=== PATIENT | female | born 1990 | race Caucasian/White ===

== ENCOUNTER 2016-09-01 22:34 | Emergency (ER) | payer OTHER ==
[~2016-09-01] VITALS: Ht 154.9 cm; Wt 47.0 kg
[2016-09-01 22:38] VITALS: Ht 154.9 cm; Wt 47.0 kg
[2016-09-01] MEDS ORDERED: SOD CHLORIDE 0.9% 1,000 ML IV STA (23:34)
[2016-09-01] MEDS ORDERED: DIPHENHYDRAMINE 50 MG INJ IV STA (23:34)
[2016-09-01] MEDS ORDERED: METOCLOPRAMIDE 10 MG INJ IV STA (23:34)
--- NOTE | 2016-09-02 00:33 | RADRPT ---
PROCEDURE: CT brain without contrast CLINICAL INDICATION: Headaches TECHNIQUE: A CT of the brain was performed utilizing axial sections from the skull base through th e vertex without contrast. Sagittal and coronal images were also reformatted. The exam CTDIvol = 44. 84 mGy and DLP = 720.23 mGy-cm. COMPARISON: None available FINDINGS: No acute intracranial hemorrhage is identified. There is no mass effect or midline shift. No extra -axial fluid collection is seen. The ventricles and sulci are within normal limits for size and con figuration. The density of the brain is within normal limits. Navas-white differentiation is preser anuradha. The osseous structures are unremarkable. The mastoid air cells and visualized paranasal sinuses are clear. RPTAT:HJJR IMPRESSION: Unremarkable noncontrast CT of the brain. Physician Kelsi Date Time Electronically viewed and signed by Physician Kelsi on 09/02/2016 00:33 /
[2016-09-02] MEDS ORDERED: KETOROLAC 30 MG INJ IV STA (00:48)
[2016-09-02] MEDS ORDERED: IBUP-1542 PO (01:22)
--- NOTE | 2016-09-02 01:31 | ERD ---
ER Documentation Chief Complaint Date/Time DATE: 09/02/16 TIME: 01:25 Chief Complaint headache x 3 hours. denies vomiting HPI Patient is a 26-year-old female with past medical history of seizures who presents to the emergency department with a headache. Patient states her headache started 3 hours ago. Patient describes the pain to be a 10 out of 10. Patient states her pain is primary in the frontal region and "pounding in nature". Patient states she took Aleve at 5 PM with no alleviation of symptoms. Patient states she then took ibuprofen 8 PM with no alleviation of symptoms. Patient states she typically has gotten headaches in the past however this headache is worse and more severe. Patient states she typically does get alleviation with headaches however she is not getting any alleviation with pain medication. Patient denies any nausea, vomiting, blurry vision or loss of consciousness. Patient denies any neck pain, back pain. Patient does play soccer and reports only drinking 2 bottles of water per day. She does report taking Lamotrigine daily. ROS All systems reviewed and are negative except as per history of present illness. Medications Home Meds Active Scripts Ibuprofen* (Motrin*) 600 Mg Tab, 600 MG PO Q6, #30 TAB Prov:KATRIN CALVO PA-C 09/02/16 Allergies Allergies: Coded Allergies: No Known Drug Allergies (Verified Allergy, Unknown, 09/01/16) PMhx/Soc History of Surgery: No Anesthesia Reaction: No Hx Neurological Disorder: No Hx Respiratory Disorders: No Hx Cardiac Disorders: No Hx Psychiatric Problems: No Hx Miscellaneous Medical Probl: No Hx Alcohol Use: No Hx Substance Use: No Hx Tobacco Use: No Smoking Status: Never smoker Physical Exam Vitals Vital Signs Date Time Temp Pulse Resp B/P Pulse Ox O2 Delivery O2 Flow Rate FiO2 09/02/16 02:05 97.6 57 17 102/51 100 Room Air 09/01/16 22:38 98.8 74 20 123/68 100 Physical Exam General: Well-developed, well-nourished female. Appears in no acute distress. Speaking in full sentences Head: Normocephalic, atraumatic. Tender to admission in bilateral temporal regions. Eyes: Pupils are equally reactive bilaterally. EOMs grossly intact. No conjunctival erythema. ENT: External ear without any masses or tenderness. Auditory canals clear bilaterally. No hemotympanium. TM visualized bilaterally, non-erythematous, non- bulging. Nasal mucosa pink with no discharge. Turbinates normal. Oropharynx is pink without any tonsillar erythema or exudates. Sinuses non-tender to palpation. Neck: Supple. No lymphadenopathy or thyromegaly. No meningeal signs. Lungs: Clear to auscultation bilaterally. No rhonchi, wheezing, rales or coarse breath sounds. Heart: Regular rate and rhythm. No murmurs, rubs or gallops. Extremities: No pedal edema, unilateral leg swelling. 5/5 strength in all extremities. Neurologic: Alert and oriented x3, cooperative. Mood and affect appropriate to situation. Cranial nerves II through XII are grossly intact. Normal speech. Motor exam: 5/5 strength in upper and lower extremities. Sensory exam: Sensation intact to light touch on all four extremities. Cerebellar function exam: Rapid alternating movements intact. No dysmetria on uvwyxa-ow-eqcp test. Steady gait. No pronator drift. Negative Brudzinski sign. Negative Kernig sign. Skin: Normal color. Warm and dry. No rashes or lesions. Results 24 hrs Current Medications Medications (Trade) Dose Ordered Sig/Lulu Route PRN Reason Start Time Stop Time Status Last Admin Dose Admin Sodium Chloride (NS) 1,000 ml @ 1,000 mls/hr Q1H STAT IV 09/01/16 23:34 09/02/16 00:33 DC 09/02/16 00:02 Metoclopramide HCl (Reglan) 10 mg ONCE STAT IV 09/01/16 23:34 09/01/16 23:36 DC 09/01/16 23:55 Diphenhydramine HCl (Benadryl) 25 mg ONCE STAT IV 09/01/16 23:34 09/01/16 23:36 DC 09/01/16 23:55 Ketorolac Tromethamine (Toradol) 30 mg ONCE STAT IV 09/02/16 00:48 09/02/16 00:49 DC 09/02/16 01:06 Procedures/MDM ED COURSE: The patient was stable throughout ED course. I kept the patient and/or family informed of laboratory and diagnostic imaging results throughout the ED course. DIAGNOSTIC IMAGING: Read by radiologist. DIAGNOSTIC IMAGING REPORT Patient: WEI KATE : 1990 Age: 26 Sex: F MR #: [id number] DOS: 09/01/16 2334 Ordering MD: KATRIN CALVO PA-C Location: [facility] Room/Bed: PROCEDURE: CT brain without contrast CLINICAL INDICATION: Headaches TECHNIQUE: A CT of the brain was performed utilizing axial sections from the skull base through the vertex without contrast. Sagittal and coronal images were also reformatted. The exam CTDIvol = 44.84 mGy and DLP = 720.23 mGy-cm. COMPARISON: None available FINDINGS: No acute intracranial hemorrhage is identified. There is no mass effect or midline shift. No extra-axial fluid collection is seen. The ventricles and sulci are within normal limits for size and configuration. The density of the brain is within normal limits. Navas-white differentiation is preserved. The osseous structures are unremarkable. The mastoid air cells and visualized paranasal sinuses are clear. RPTAT:HJJR IMPRESSION: Unremarkable noncontrast CT of the brain. Physician Kelsi Date Time Electronically viewed and signed by Physician Kelsi on 09/02/2016 00:33 JR/ CC: KATRIN CALVO PA-C MEDICATIONS GIVEN: The fluids, Reglan, Benadryl, Toradol. Toradol was given once the patient was noted to have negative CT head findings. Patient tolerated medication well with no adverse reactions. Patient reported improvement in pain. MEDICAL DECISION MAKING: This is a 26-year-old female with past medical history of seizures who presents to the ED with a headache 3 hours. Vital signs were reviewed. Patient was afebrile. Patient is not hypoxic. Patient stated that the headache was gradual. Patient stated that current headache was similar to headaches in the past. Patient denied any fevers, neck stiffness, jaw claudication, visual changes or LOC. Full neurological exam was normal. Unremarkable noncontrast CT of the brain was noted. Given these findings, the patient's presentation is most consistent with tension vs migraine headache. I have a much lower clinical concern for intracranial hemorrhage, meningitis, encephalitis, CO poisoning, temporal arteritis, benign intracranial hypertension, intracranial mass, glaucoma, preeclampsia, sinusitis. PRESCRIPTIONS: Ibuprofen DISCHARGE: At this time, patient is stable for discharge and outpatient management. I have encouraged the patient to hydrate well. Patient provided with a copy of all imaging studies obtained today. I have instructed the patient to follow-up with his/her primary care physician in 1-2 days. Patient was advised that she should follow-up with her neurologist for further management of her headaches . Patient should continue to take seizure medication. I have instructed the patient to promptly return to the ER at any time for any new or worsening symptoms including increased increased pain, fever, nausea, vomiting, numbness, neck stiffness, visual changes, weakness or LOC. The patient and/or family expressed understanding of and agreement with this plan. All questions were answered. Home care instructions were provided. Departure Diagnosis: Primary Impression: Headache Headache type: unspecified Headache chronicity pattern: unspecified pattern Intractability: not intractable Qualified Code: R51 - Nonintractable headache, unspecified chronicity pattern, unspecified headache type Condition: Stable Patient Instructions: Self-Care for Headaches Referrals: [facility] YOU HAVE RECEIVED A MEDICAL SCREENING EXAM AND THE RESULTS INDICATE THAT YOU DO NOT HAVE A CONDITION THAT REQUIRES URGENT TREATMENT IN THE EMERGENCY DEPARTMENT. FURTHER EVALUATION AND TREATMENT OF YOUR CONDITION CAN WAIT UNTIL YOU ARE SEEN IN YOUR DOCTORS OFFICE WITHIN THE NEXT 1-2 DAYS. IT IS YOUR RESPONSIBILITY TO MAKE AN APPOINTMENT FOR FOLOW-UP CARE. IF YOU HAVE A PRIMARY DOCTOR --you should call your primary doctor and schedule an appointment IF YOU DO NOT HAVE A PRIMARY DOCTOR YOU CAN CALL OUR PHYSICIAN REFERRAL HOTLINE AT IF YOU CAN NOT AFFORD TO SEE A PHYSICIAN YOU CAN CHOSE FROM THE FOLLOWING [facility] [address] [facility]. [facility] [address] [facility]. [facility] [address] [facility]. [facility] [address] [facility]. [facility] [address]. [facility]. [address] [facility]. [facility] YOU HAVE RECEIVED A MEDICAL SCREENING EXAM AND THE RESULTS INDICATE THAT YOU DO NOT HAVE A CONDITION THAT REQUIRES URGENT TREATMENT IN THE EMERGENCY DEPARTMENT. FURTHER EVALUATION AND TREATMENT OF YOUR CONDITION CAN WAIT UNTIL YOU ARE SEEN IN YOUR DOCTORS OFFICE WITHIN THE NEXT 1-2 DAYS. IT IS YOUR RESPONSIBILITY TO MAKE AN APPOINTMENT FOR FOLOW-UP CARE. IF YOU HAVE A PRIMARY DOCTOR --you should call your primary doctor and schedule and appointment IF YOU DO NOT HAVE A PRIMARY DOCTOR YOU CAN CALL OUR PHYSICIAN REFERRAL HOTLINE AT . IF YOU CAN NOT AFFORD TO SEE A PHYSICIAN YOU CAN CHOSE FROM THE FOLLOWING [facility] INSTITUTIONS: [facility] [address] [place] [address] [facility] [address] [place] [address] [facility] [address] [place] [address] Additional Instructions: Call your primary care doctor TOMORROW for an appointment during the next 1-2 days.See the doctor sooner or return here if your condition worsens before your appointment time. Follow up with your neurologist in the next 1-2 days. Continue to take seizure medication. KATRIN CALVO PA-C Sep 02, 2016 01:31
[2016-09-02 02:05] VITALS: BP 102/51; PULSE 57; RESP 17; TEMP 97.6
== END 2016-09-02 02:05 | disposition home or self-care (01) ==
LOC: FTE 22:34
DX: R51 Headache (principal)
CPT/HCPCS: 70450; 96361; 96374; 96375; J1200; J1885; J2765; J7030; Z7502

== ENCOUNTER 2017-02-06 20:02 | Emergency (ER) | payer OTHER ==
[~2017-02-06] VITALS: Ht 154.9 cm; Wt 49.0 kg
[~2017-02-06 20:02] MED LIST: IBUP-1542 PO
[2017-02-06 20:11] VITALS: Ht 154.9 cm; Wt 49.0 kg
[2017-02-06] MEDS ORDERED: SOD CHLORIDE 0.9% 1,000 ML IV ONE (21:30)
[2017-02-06 21:52] LABS: BASOPHILS % 0.3 % (0.0-2.0); EOSINOPHILS # 0.4 10^3/ul (0.0-0.5); EOSINOPHILS % 2.9 % (0.0-7.0); HEMATOCRIT 36.1 % (37.0-47.0); HEMOGLOBIN 11.4 g/dl (12.0-16.0); LYMPHOCYTES # 1.4 10^3/ul (0.8-2.9); LYMPHOCYTES % 10.8 % (15.0-51.0); MEAN CORPUSCULAR HEMOGLOBIN 28.7 pg (29.0-33.0); MEAN CORPUSCULAR HGB CONC 31.6 g/dl (32.0-37.0); MEAN CORPUSCULAR VOLUME 90.9 fl (82.0-101.0); MEAN PLATELET VOLUME 11.7 fl (7.4-10.4); MONOCYTE # 0.9 10^3/ul (0.3-0.9); NEUTROPHIL # 9.9 10^3/ul (1.6-7.5); NEUTROPHILS % 78.7 % (39.0-77.0); PLATELET COUNT 226 10^3/UL (140-415); RED BLOOD COUNT 3.97 10^6/ul (4.20-5.40); RED CELL DISTRIBUTION WIDTH 13.9 % (11.5-14.5); WHITE BLOOD COUNT 12.7 10^3/ul (4.8-10.8)
[2017-02-06] MEDS ORDERED: AMOX1TAB10 PO (21:54)
[2017-02-06 22:10] LABS: CALCIUM 9.5 mg/dl (8.4-10.2); CREATININE 0.79 mg/dl (0.44-1.00); POTASSIUM 3.5 mmol/L (3.5-5.1)
--- NOTE | 2017-02-07 19:41 | ERD ---
ER Documentation Chief Complaint Date/Time DATE: 02/07/17 TIME: 19:29 Chief Complaint DIZZINESS X 1 HOUR AGO, SORE THROAT AND STUFFY NOSE STARTED YESTERDAY. HPI This is a 26 year old female, with past medical history of seizures, presenting to ER with sore throat, cough, rhinitis, rhinorrhea, headache and dizziness x 1 hour. Patient states all symptoms started earlier today. Denies fevers or chills. Cough is dry and non productive. No chest pain, shortness of breathing or difficulty breathing. No difficulty swallowing or drooling. No muffled voice. No neck pain or neck stiffness. No skin rashes. Headache is frontal and does not radiate. Patient states she feels "congested." Patient took zyrtec-D prior to arrival. No abdominal pain, nausea or vomiting. ROS All systems reviewed and are negative except as per history of present illness. Medications Home Meds Active Scripts Amoxicillin/Potassium Clav (Amox-Clav 875-125 mg Tablet) 875-125 mg Tab, 1 TAB PO BID for 10 Days, #20 TAB Prov:ESTRELLA ADKINS NP 02/06/17 Ibuprofen* (Motrin*) 600 Mg Tab, 600 MG PO Q6, #30 TAB Prov:KATRIN CALVO PA-C 09/02/16 Allergies Allergies: Coded Allergies: No Known Drug Allergies (Verified Allergy, Unknown, 02/06/17) PMhx/Soc Seizures Medical and Surgical Hx: pt denies Medical Hx, pt denies Surgical Hx History of Surgery: No Anesthesia Reaction: No Hx Neurological Disorder: Yes Hx Respiratory Disorders: No Hx Cardiac Disorders: No Hx Psychiatric Problems: No Hx Alcohol Use: No Hx Substance Use: No Hx Tobacco Use: No Smoking Status: Never smoker Physical Exam Vitals Vital Signs Date Time Temp Pulse Resp B/P Pulse Ox O2 Delivery O2 Flow Rate FiO2 02/06/17 20:11 98.7 72 17 124/77 99 Physical Exam Const: No acute distress, alert Head: Atraumatic Eyes: Normal Conjunctiva ENT: Normal External Ears, Nose and Mouth.No erythema or exudate to posterior pharynx. No peritonsillar abscess. TMs normal bilaterally. Neck: Full range of motion..~ No meningismus. Resp: Clear to auscultation bilaterally. No wheezing, rhonchi or crackles. No stridor or labored breathing. No intercostal retractions. Cardio: Regular rate and rhythm, no murmurs Abd: Soft, non tender, non distended. Normal bowel sounds Skin: No petechiae or rashes Back: No midline or flank tenderness Ext: No cyanosis, or edema Neur: Awake and alert Psych: Normal Mood and Affect Result Diagram: 02/06/17212002/06/172120 Results 24 hrs Laboratory Tests Test 02/06/17 21:21 White Blood Count 12.710^3/ul Red Blood Count 3.9710^6/ul Hemoglobin 11.4g/dl Hematocrit 36.1% Mean Corpuscular Volume 90.9fl Mean Corpuscular Hemoglobin 28.7pg Mean Corpuscular Hemoglobin Concent 31.6g/dl Red Cell Distribution Width 13.9% Platelet Count 15184^3/UL Mean Platelet Volume 11.7fl Neutrophils % 78.7% Lymphocytes % 10.8% Monocytes % 7.0% Eosinophils % 2.9% Basophils % 0.3% Nucleated Red Blood Cells % 0.0/100WBC Neutrophils # 9.910^3/ul Lymphocytes # 1.410^3/ul Monocytes # 0.910^3/ul Eosinophils # 0.410^3/ul Basophils # 0.010^3/ul Nucleated Red Blood Cells # 0.010^3/ul Sodium Level 137mmol/L Potassium Level 3.5mmol/L Chloride Level 101mmol/L Carbon Dioxide Level 29mmol/L Anion Gap 11 Blood Urea Nitrogen 9mg/dl Creatinine 0.79mg/dl Glucose Level 91mg/dl Calcium Level 9.5mg/dl Current Medications Medications (Trade) Dose Ordered Sig/Lulu Route PRN Reason Start Time Stop Time Status Last Admin Dose Admin Sodium Chloride (NS) 1,000 ml @ 1,000 mls/hr Q1H ONCE IV 02/06/17 21:30 02/06/17 22:29 DC 02/06/17 21:40 Procedures/MDM MDM: 26 year old female presnting to ER with multiple symptoms including sore throat, cough, rhinorrhea, rhinitis, headache and dizziness x 1 hour. Patient has history of seizures and therefore mother is concerned. Patient is on anti- seizure medication. No fever while in ED. Lung and ENT exam unremarkable. Patient and patient's mother refusing xray. IV access obtained and patient given 1L IV fluid bolus. Labs drawn. CBC shows WBC 12.7 with neutrophilia. BMP shows no significant electrolyte imbalance. Influenza swab is negative. Upon reassessment of patient, she states she is feeling better. Vitals remain stable and patient remains afebrile. Differential diagnosis includes but not limited to URI, sinusitis, influenza, bronchits, pleurisy, viral syndrome, gastroenteritis, pneumonia, otitis media, otitis externa, viral pharyngitis, strep pharyngitis, mononucleosis and croup. Patient is appropriate for outpatient management and instructed patient to follow up with PCP in the next 2-3 days for reassessment and additional management. Patient will be discharged with prescription for Augmentin for possible bacterial sinusitis. Return to ED for any new or worsening symptoms. Patient and patient's mother verbalize understanding. All questions answered at discharge. Departure Diagnosis: Primary Impression: Sinusitis Sinusitis location: frontal Chronicity: acute Recurrence: non-recurrent Qualified Code: J01.10 - Acute non-recurrent frontal sinusitis Condition: Stable Patient Instructions: Sinus Headaches, Acute Sinusitis Referrals: [facility] YOU HAVE RECEIVED A MEDICAL SCREENING EXAM AND THE RESULTS INDICATE THAT YOU DO NOT HAVE A CONDITION THAT REQUIRES URGENT TREATMENT IN THE EMERGENCY DEPARTMENT. FURTHER EVALUATION AND TREATMENT OF YOUR CONDITION CAN WAIT UNTIL YOU ARE SEEN IN YOUR DOCTORS OFFICE WITHIN THE NEXT 1-2 DAYS. IT IS YOUR RESPONSIBILITY TO MAKE AN APPOINTMENT FOR FOLOW-UP CARE. IF YOU HAVE A PRIMARY DOCTOR --you should call your primary doctor and schedule an appointment IF YOU DO NOT HAVE A PRIMARY DOCTOR YOU CAN CALL OUR PHYSICIAN REFERRAL HOTLINE AT IF YOU CAN NOT AFFORD TO SEE A PHYSICIAN YOU CAN CHOSE FROM THE FOLLOWING [facility] [address] [facility] [address] [facility]. [facility] [address] [facility]. [facility] [address] [facility] [address] [facility]. [facility]. [address] [facility]. [facility] YOU HAVE RECEIVED A MEDICAL SCREENING EXAM AND THE RESULTS INDICATE THAT YOU DO NOT HAVE A CONDITION THAT REQUIRES URGENT TREATMENT IN THE EMERGENCY DEPARTMENT. FURTHER EVALUATION AND TREATMENT OF YOUR CONDITION CAN WAIT UNTIL YOU ARE SEEN IN YOUR DOCTORS OFFICE WITHIN THE NEXT 1-2 DAYS. IT IS YOUR RESPONSIBILITY TO MAKE AN APPOINTMENT FOR FOLOW-UP CARE. IF YOU HAVE A PRIMARY DOCTOR --you should call your primary doctor and schedule and appointment IF YOU DO NOT HAVE A PRIMARY DOCTOR YOU CAN CALL OUR PHYSICIAN REFERRAL HOTLINE AT . IF YOU CAN NOT AFFORD TO SEE A PHYSICIAN YOU CAN CHOSE FROM THE FOLLOWING [facility] INSTITUTIONS: [facility] [address] [place] [address] [facility] [address] [place] [address] [facility] [address] [place] [address] Additional Instructions: Call your primary care doctor TOMORROW for an appointment during the next 2-3 days.See the doctor sooner or return here if your condition worsens before your appointment time. Return to ED for any high fever, chest pain, difficulty breathing, shortness breath, wheezing, vomiting, diarrhea, abdominal pain or any new or worsening symptoms. ESTRELLA ADKINS NP Feb 07, 2017 19:41
== END 2017-02-06 23:25 | disposition home or self-care (01) ==
LOC: FTE 20:02
DX: J01.10 Acute frontal sinusitis, unspecified (principal)
CPT/HCPCS: 80048; 85025; 87400; J7030; Z7502

== ENCOUNTER 2017-04-01 23:21 | Emergency (ER) | payer SELFPAY ==
[~2017-04-01] VITALS: Ht 154.9 cm; Wt 48.6 kg
[~2017-04-01 23:21] MED LIST changes: +AMOX1TAB10 PO
[2017-04-01 23:51] VITALS: Ht 154.9 cm; Wt 48.6 kg
== END 2017-04-02 03:00 | disposition left against medical advice (07) ==
LOC: FTE 23:21
DX: Z53.21 Procedure and treatment not carried out due to patient leaving prior to being seen by health care provider (principal)

== ENCOUNTER → 2018-12-06 | Emergency (ER) | payer SELFPAY ==
[~2018-12-06] VITALS: Wt 44.0 kg
== END | disposition left against medical advice (07) ==
LOC: FTE 10:12
DX: Z53.21 Procedure and treatment not carried out due to patient leaving prior to being seen by health care provider (principal)